=== PATIENT | male | born 1945 | race African-American/Black ===

== ENCOUNTER 2018-12-27 15:01 | Inpatient (IN) | payer OTHER ==
[~2018-12-27] VITALS: Ht 167.6 cm; Wt 79.4 kg
[2018-12-27 15:38] LABS: ABSOLUTE NEUTROPHILS 2.9 thou/uL (1.4-8.2); BASOPHILS 0.7 % (0.0-2.0); EOSINOPHILS 0.9 % (0.0-3.0); HEMATOCRIT 36.2 % (42.0-52.0); LYMPHOCYTES 31.2 % (24.0-44.0); MCH 31.2 pg (26.0-34.0); MCV 94.4 fL (80.0-100.0); PLATELET COUNT 261 thou/uL (150-400); POLYS 57.2 % (36.0-66.0); RBC 3.84 mil/uL (4.50-6.00); RDW 13.4 % (10.5-14.5); WBC 5.1 thou/uL (4.0-11.0)
[2018-12-27 15:52] LABS: ANION GAP 9 mmol/L (7-16); BUN 20 mg/dL (7-18); CALCIUM 8.8 mg/dL (8.5-10.1); CHLORIDE 101 mmol/L (98-107); CO2 25 mmol/L (21-32); CREATININE 1.6 mg/dL (0.7-1.3); DIRECT BILIRUBIN < 0.1 mg/dL (<0.1-0.3); SGOT 11 U/L (15-37); SGPT 20 U/L (30-65); SODIUM 135 mmol/L (136-145); TOTAL BILIRUBIN 0.2 mg/dL (<0.1-1.0); TOTAL PROTEIN 6.7 g/dL (6.4-8.2)
[2018-12-27 15:53] LABS: GLUCOSE 592 mg/dL (74-106)
[2018-12-27 20:36] LABS: URINE BILIRUBIN NEGATIVE (Negative); URINE BLOOD NEGATIVE (Negative); URINE CLARITY CLEAR; URINE COLOR YELLOW; URINE GLUCOSE-RANDOM* 3+ (Negative); URINE KETONES NEGATIVE (Negative); URINE LEUKOCYTES-REFLEX NEGATIVE (Negative); URINE NITRITE-REFLEX NEGATIVE (Negative); URINE PROTEIN (DIPSTICK) NEGATIVE (Negative); URINE UROBILINOGEN 0.2 E.U./dl (0.2-1.0)
[2018-12-27 23:55] VITALS: BP 145/99
[2018-12-28 00:25] VITALS: BP 125/63
[2018-12-28] MEDS ORDERED: AMLODIPINE BESY10 MG PO (00:49)
[2018-12-28] MEDS ORDERED: MIRALAX17 GM PO (00:49)
[2018-12-28] MEDS ORDERED: SINEMET 25-1001 EAC1 PO (00:49)
[2018-12-28] MEDS ORDERED: DEPAKOTE500 MG PO (00:50)
[2018-12-28] MEDS ORDERED: COLACE100 MG PO (00:50)
[2018-12-28] MEDS ORDERED: ELIQUIS5 MG PO (00:51)
[2018-12-28] MEDS ORDERED: PROSCAR 5MG TABL5 MG PO (00:51)
[2018-12-28] MEDS ORDERED: ESCITALOPRAM OX20 MG PO (00:51)
[2018-12-28] MEDS ORDERED: LEVEMIR SUBQ (00:52)
[2018-12-28] MEDS ORDERED: MELATONIN3 MG PO (00:53)
[2018-12-28] MEDS ORDERED: NOVOLIN N100 UNIT/3 SUBQ (00:54)
[2018-12-28] MEDS ORDERED: PRAVACHOL40 MG PO (00:54)
[2018-12-28] MEDS ORDERED: FLOMAX0.4 MG PO (00:54)
[2018-12-28] MEDS ORDERED: VITAMIN D1000 UNI1 PO (00:55)
[2018-12-28] MEDS ORDERED: TRAZODONE HCL50 MG PO (00:55)
[2018-12-28] MEDS ORDERED: REFRESH LIQUIGE15 ML (00:56)
[2018-12-28] MEDS ORDERED: DEPAKOTE ER250 MG PO (02:18)
[2018-12-28] MEDS ORDERED: TYLENOL325 MG PO (02:26)
[2018-12-28 03:58] VITALS: BP 97/46
[2018-12-28 06:03] LABS: CALCIUM 8.8 mg/dL (8.5-10.1); CREATININE 1.1 mg/dL (0.7-1.3)
[2018-12-28 06:11] LABS: POTASSIUM 3.6 mmol/L (3.5-5.1)
[2018-12-28 07:53] VITALS: BP 114/54
[2018-12-28] MEDS ORDERED: NOVOLOG100 UNIT/1 SUBQ (10:14)
[2018-12-28 11:16] VITALS: BP 139/72
[2018-12-28 12:18] VITALS: BP 139/72
--- NOTE | 2018-12-28 15:44 | NUR ---
PT was confused and refused to take medications at 08ooam, but pt's vs and bs are stable, pt is contniung IV D5 1/2 NS @ 100ML/HR, PT starts cooperative and follow all commands at 1100am , pt takes all medications and eats a good lunch,pt has met most of the care plan [facility] received order to d[facility] will d/c soon.
--- NOTE | 2018-12-28 16:31 | NUR ---
RN has giving report , [facility]'s transportation has potato picker pt by W/C now, pt is cooperative to go .
[2018-12-29 01:05] LABS: GLYCOHEMOGLOBIN (HGB A1C) 10.8 % (4.8-5.6)
== END 2018-12-28 16:29 | DRG 637 ==
LOC: ER 15:01 → EROBS 20:05 → 3W 12-28 00:22
PROVIDERS: Emergency Medicine; Nurse Practitioner Family; ADMIT Hospitalist
DX: E11.65 Type 2 diabetes mellitus with hyperglycemia (principal); G93.41 Metabolic encephalopathy; G30.9 Alzheimer's disease, unspecified; F02.80 Dementia in other diseases classified elsewhere, unspecified severity, without behavioral disturbance, psychotic disturbance, mood disturbance, and anxiety; E11.22 Type 2 diabetes mellitus with diabetic chronic kidney disease; G20 Parkinson's disease; N18.3 Chronic kidney disease, stage 3 (moderate); I48.2 Chronic atrial fibrillation; I12.9 Hypertensive chronic kidney disease with stage 1 through stage 4 chronic kidney disease, or unspecified chronic kidney disease; G47.00 Insomnia, unspecified; E78.5 Hyperlipidemia, unspecified; Z79.899 Other long term (current) drug therapy; Z88.0 Allergy status to penicillin

== ENCOUNTER 2018-12-31 15:43 | Inpatient (IN) | payer OTHER ==
[~2018-12-31] VITALS: Ht 172.7 cm; Wt 81.3 kg
--- NOTE | ~2018-12-31 | D ---
[facility] [place] [address] DISCHARGE SUMMARY Name: BONNY LOIVAREZ Room #: 519B-B DIS IN M.R.#: [id number] Admission: 12/31/18 Attend Phys: Horace Wise DO Discharge: 01/13/19 Date of : 45 Report #: [id number] THIS REPORT FOR: //name// CC: Horace Wise Lanny Chong PSYCHIATRIC DISCHARGE SUMMARY DATE OF DISCHARGE: 01/14/2019 ATTENDING PHYSICIAN: Horace Wise DO SOFTWARE EDUCATOR AT TIME OF DISCHARGE: Noe Stanley MD ADDITIONAL PRODUCTION TEAM MANAGER: Dr. Loretta Decker, leak hunter. The [facility]. Psychiatric and medical care will be per that staff. DIET: Diabetic diet. ACTIVITY LEVEL: As tolerated, will need 24/7 supervision. I believe we did DPOA at this admission. HOSPITAL COURSE: As stated, he had more periods of mood lability, ____ improved. This became less and less. I think the patient will have greater insight to the degree of ____ than he had previously. SIGNIFICANT LABORATORY DATA AT THIS ADMISSION: Most recent labs from 01/10/2019; H and H 15 and 31.4, white count 5.3, platelets 234. Toxicology: Depakote was titrated it was 1250 mg level was 39, increased to 1500 at discharge. DISCHARGE MEDICATIONS: Depakote ER 1500 mg p.o. at bedtime, blood level of this is normal. Seroquel 50 mg, ____ 2100. He did have conjunctivitis in his right eye, which resolved. Pantoprazole 20 mg p.o. daily for GERD. PHYSICAL EXAMINATION: VITAL SIGNS: On the day of discharge are as follows: Temperature 36.1, pulse 93, respirations 12, BP 148/82. MENTAL STATUS EXAMINATION: Initially, this is a well-developed, frail, disheveled black male who is nonambulatory, was in a wheelchair. Attention limited. Concentration limited. Speech is normal rate. Thought process is linear and goal directed relatively. Memory is variable. Insight limited. Judgment limited. Fund of knowledge ____. [facility] [address] [place] [address] DISCHARGE SUMMARY Name: BONNY OLIVAREZ Room #: 519B-B DIS IN M.R.#: [id number] Admission: 12/31/18 Attend Phys: Horace Wise DO Discharge: 01/13/19 Date of : 45 Report #: [id number] PROGNOSIS: For this patient is guarded given his dementia. Besides major neurocognitive disorder, other morbidities should be uncontrolled diabetes mellitus, CKD stage 3. By: 0018 0100 Horace Wise DO /nt
[2018-12-31 15:43] VITALS: BP 150/80
[~2018-12-31 15:43] MED LIST: AMLODIPINE BESY10 MG PO; COLACE100 MG PO; DEPAKOTE ER250 MG PO; DEPAKOTE500 MG PO; ELIQUIS5 MG PO; ESCITALOPRAM OX20 MG PO; FLOMAX0.4 MG PO; LEVEMIR SUBQ; MELATONIN3 MG PO; MIRALAX17 GM PO; NOVOLIN N100 UNIT/3 SUBQ; NOVOLOG100 UNIT/1 SUBQ; PRAVACHOL40 MG PO; PROSCAR 5MG TABL5 MG PO; REFRESH LIQUIGE15 ML; SINEMET 25-1001 EAC1 PO; TRAZODONE HCL50 MG PO; TYLENOL325 MG PO; VITAMIN D1000 UNI1 PO
[2018-12-31 15:46] VITALS: BP 150/80
[2018-12-31 16:05] LABS: ABSOLUTE NEUTROPHILS 2.4 thou/uL (1.4-8.2); BASOPHILS 0.6 % (0.0-2.0); EOSINOPHILS 1.2 % (0.0-3.0); HEMATOCRIT 37.9 % (42.0-52.0); HEMOGLOBIN 12.8 gm/dL (14.0-18.0); LYMPHOCYTES 34.3 % (24.0-44.0); MCH 31.4 pg (26.0-34.0); MCHC 33.7 g/dL (28.0-37.0); MCV 93.2 fL (80.0-100.0); PLATELET COUNT 275 thou/uL (150-400); POLYS 54.9 % (36.0-66.0); RBC 4.06 mil/uL (4.50-6.00); WBC 4.3 thou/uL (4.0-11.0)
[2018-12-31 16:06] LABS: URINE BILIRUBIN NEGATIVE (Negative); URINE BLOOD NEGATIVE (Negative); URINE CLARITY CLEAR; URINE COLOR YELLOW; URINE GLUCOSE-RANDOM* 3+ (Negative); URINE KETONES NEGATIVE (Negative); URINE LEUKOCYTES-REFLEX NEGATIVE (Negative); URINE NITRITE-REFLEX NEGATIVE (Negative); URINE PROTEIN (DIPSTICK) TRACE (Negative); URINE SPECIFIC GRAVITY 1.015 (1.005-1.035); URINE UROBILINOGEN 0.2 E.U./dl (0.2-1.0)
[2018-12-31 16:13] LABS: AMP/METHAMP Negative (Negative); BARBITURATES Negative (Negative); BENZODIAZEPINES Negative (Negative); COCAINE Negative (Negative); METHADONE Negative (Negative); OPIATES Negative (Negative); PCP Negative (Negative)
[2018-12-31 16:14] LABS: CALCIUM 9.2 mg/dL (8.5-10.1); CREATININE 1.6 mg/dL (0.7-1.3); POTASSIUM 4.7 mmol/L (3.5-5.1)
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
[2018-12-31 17:55] VITALS: BP 155/83
[2018-12-31 22:39] VITALS: BP 126/69
--- NOTE | 2019-01-01 00:05 | NUR ---
PATIENT IN BED WHEN I CAME ON TONIGHT. HE IS NEW HERE. HE IS BED BOUND. HE DID SCOOT HIMSELF TO THE FLOOR BECAUSE HE HAD THE WIRE FROM [employer] THAT WAS FROM THE TRANSPORTATION AMBULANCE FELL ONTO HIS BED AND HE THOUGHT THE WIRE WAS A BOMB. HE WAS TRYING TO GET AWAY FROM IT. PATIENT WAS UNABLE TO HOLD HIS WEIGHT ON HIS LEGS AND ME AND MALE LOCK AND DAM OPERATOR HAD TO LIFT HIM TO GET HIM BACK INTO THE BED. I TOOK THE WIRE AND LET THE PATIENT KNOW THERE WAS NO BOMB PRESENT NOW AND HE WAS SAFE. HE CALMED DOWN. HIS GLUCOSE AT HS WAS 320. GLARGINE 10U GIVEN AND LISPRO 9U GIVEN. PATIENT TOOK HIS HS MEDS WHOLE AND WITHOUT DIFFICULTY AND CURRENTLY IS SLEEPING SOUNDLY NOW.
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
[2019-01-01 17:00] LABS: ALBUMIN 3.2 g/dL (3.4-5.0); DIRECT BILIRUBIN < 0.1 mg/dL (<0.1-0.3); SGOT 18 U/L (15-37); SGPT 25 U/L (30-65); TOTAL BILIRUBIN 0.2 mg/dL (<0.1-1.0); TOTAL PROTEIN 7.3 g/dL (6.4-8.2)
--- NOTE | 2019-01-01 17:29 | NUR ---
COMBATIVE-STRIKING OUT AT AND SWEARING AT NURSING STAFF WITH ATTEMPTS TO DO AM VS OR BLOOD SUGARS-REFUSES BREAKFAST AND ALL PO MEDS-ATTEMPTING TO GET UP OUT OF BED AFTER LARGE EPISODES OF URINARY AND FECAL INCONTNENCE-REQUIRES SBA OF 2 STAFF FOR TRANSFERS AND 3 TO COMPLETE INCONTINENT CARE- DID EAT LARGE BREAKFAST LATE-ASSISTED BY MD IN ADMINISTERING INSULINS AT 1130 BS 444 AND PT CONTNUES TO REFUSE. INCONT OF URINE X3-DENIES CO PAIN/DICOMFORT. VS OBTAINED AT 1600 AND BP 140/83 P-77 [id number] TEMP BUT 02 SAT 98
[2019-01-01 19:48] VITALS: BP 128/75
--- NOTE | 2019-01-02 03:31 | NUR ---
NURSES NOTE - ASSUMED CAERE OF PATIENT AT 1915. PATIENT HAS BEEN IN BED MOST OF THE SHIFT WITH EYES OPEN. HE COMPLIED WITH THIS NURSES REQUESTS AND PROMPTS WITH NO ACTING OUT BX. HE TOOK MEDICATION ORDERED WITH NO ISSUES. HE CURRENTLY DENIED SI HI WELL ANY HALLUCINATIONS NOR WAS ANY INTERNAL STIMULI NOTED. HE DID NOT REPORT ANY MEDICAL CONCERNS NOR DOES HE APPEAR TO BE IN DISTRESS. NURSING WILL MAINTAIN ALL PRECAUTIONS TO ENSURE SAFETY AT ALL TIMES.
[2019-01-02 05:24] LABS: HEMATOCRIT 31.6 % (42.0-52.0); HEMOGLOBIN 10.9 gm/dL (14.0-18.0); MCHC 34.6 g/dL (28.0-37.0); MCV 92.4 fL (80.0-100.0); PLATELET COUNT 247 thou/uL (150-400); RBC 3.42 mil/uL (4.50-6.00); RDW 13.3 % (10.5-14.5); WBC 4.2 thou/uL (4.0-11.0)
[2019-01-02 05:34] LABS: CALCIUM 8.7 mg/dL (8.5-10.1); CREATININE 1.3 mg/dL (0.7-1.3); POTASSIUM 4.1 mmol/L (3.5-5.1)
--- NOTE | 2019-01-02 06:47 | NUR ---
PATIENT SLEPT 9.3 HOURS
[2019-01-02 06:54] LABS: PLATELET ESTIMATE NORMAL
[2019-01-02 06:56] LABS: ATYPICAL LYMPHS 5 %
[2019-01-02 08:00] VITALS: BP 118/58
[2019-01-02 08:46] VITALS: BP 118/58
--- NOTE | 2019-01-02 09:00 | NUR ---
PT ATE BREAKFAST, THEN FELL ASLEEP IN W/C. PT IN GROUP AND WAS SLEEPING AND DIDN'T WAKE UP FOR AM MEDS, ABLE TO GIVE LANTUS SHOT IN AM, PT DIDN'T AWAKE DURING SHOT. PT SITTING QUIETLY IN GROUP THIS AM.
--- NOTE | 2019-01-02 10:00 | NUR ---
PT AWAKE AT THIS TIME. PT ALLOWED NURSE TO PLACE EYE DROPS TO RT EYE. NO SIGNS OF REDDNESS AT THIS TIME TO EYES. PT THEN WANTED ASSISTED TO ROOM TO USE BATHROOM.
--- NOTE | 2019-01-02 16:05 | NUR ---
DARRIAN called in a left a voicemail for pt brother yoni concerning a FM, and to complete psych. assessment. DARRIAN provided contact information in requested a return call.
--- NOTE | 2019-01-02 17:46 | NUR ---
PT HAS BEEN TAKING MEDS WITHOUT ISSUES TODAY.
--- NOTE | 2019-01-02 18:16 | NUR ---
GOT NEW INSULIN BOTTLE FOR MODERATE SCALE LATER THAN DINNER TIME. PT DIDN'T WANT FULL 16 UNITS, HE JUST WANTED 12 UNITS. THEN HE WANTED 10 UNITS, THIS NURSE STATED THAT THERE IS A SCALE THAT THE RANGE OF SUGAR GOES BY.
--- NOTE | 2019-01-02 21:01 | NUR ---
PT REFUSED MEDICATIONS, FSBS, INSULIN AND HS SNACK. PT RESTING IN BED SINCE START OF SHIFT. PT PLEASANT AND CALM WITH VERBAL REFUSAL. ENCOURAGED PT COMPLIANCE TO ASSIST WITH DISCHARGE FROM FACILITY.
--- NOTE | 2019-01-03 06:21 | NUR ---
PT CONTINUES TO REUSE MEDICATIONS, EYE DROPS. PT GRITTED TEETH AND MADE FISTS WHEN ATTEMPTING TO COMPLETE AM ADL INCONTINENCE CARE. WILL REAPPROACH RE CARE.
[2019-01-03 08:00] VITALS: BP 148/74
--- NOTE | 2019-01-03 20:52 | NUR ---
PATIENT HAS BEEN OUT ON UNIT - PARTICIPATED RELUCTANTLY IN GROUPS. GOOD APPETITE - COMPLETION OF MEALS. MEDICATION COMPLIANCE - BLOOD SUGARS HAVE BEEN UNSTABLE BUT INSULIN GIVEN SCHEDULED. VERY LABILE - PLEASANT ONE MINUTE AND IRRITABLE NEXT. PATIENT RELUCTANT TO EXPRESS FEELINGS TO STAFF. NEEDS MONITORING - ATTEMPTS TO GET UP FROM WHEELCHAIR WITHOUT ASSISTANCE. VERY UNSTEADY ON FEET. UNABLE TO WEIGHT BEAR FOR TOO LONG.
--- NOTE | 2019-01-04 01:26 | NUR ---
PATIENT REFUSED HS ACCUCHECKS, LANTUS HELD.
--- NOTE | 2019-01-04 03:24 | NUR ---
NURSES NOTE - BONNY IS ALERT AND ORIENTED 1-2X. UPON GREETING PATIENT HE WAS AGITATED, IRRITABLE AND REFUSED THIS NURSES ASSESSMENT, ACCUCHECKS AND MEDICATIONS. HE ALSO DISPLAYED AGGRESSIVE POSTURE WHILE LAYING IN BED. THIS NURSE HELD LANTUS THIS NURSE WAS UNAWARE OF BLOOD SUGAR AND TO AVOID BOTTOMING PATIENT OUT. WILL CONTINUE TO ATTEMPT TO ASSESS AND OBTAIN BLOOD SUGAR. AT THIS TIME PATIENT WILL NOT LET THIS NURSE ASSESS PATIENT. HE DOES NOT APPEAR TO BE IN MEDICAL DISTRESS. WILL CONTINUE TO MONITOR.
--- NOTE | 2019-01-04 06:21 | NUR ---
PATIENT REFUSED ALL AM MEDICATIONS FOR NOC SHIFT.
--- NOTE | 2019-01-04 06:37 | NUR ---
PT SLEPT 11 HOURS
[2019-01-04 09:40] VITALS: BP 157/75
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
[2019-01-04 21:19] VITALS: BP 128/68
--- NOTE | 2019-01-05 01:54 | NUR ---
NURSES NOTE - THIS NURSE ASSUMED CARE AT 1915. THIS NURSE ENTERED INTO PATIENTS ROOM TO GREET PATIENT, PATIENT WAS ROLLING IN BED, COVERED IN A BLANKET. HE WOULD NOT SPEAK TO THIS NURSE NOR ACKNOWLEDGE THIS NURSE. HE REFUSED ALL HS MEDICATIONS AND HS BLOOD SUGAR. ASSESSMENT WAS UNABLE TO BE COMPLETED FULLY THIS NURSE COULD ONLY ASSESS VISUALLY. WILL CONTINUE TO MONITOR.
[2019-01-05 09:09] VITALS: BP 144/103
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
--- NOTE | 2019-01-05 10:32 | NUR ---
WILL INTERMITENTLY REFUSES MEDS,FINGERSTICKS,CARES,INSULIN ETC THIS [id number]-MINIMALLY VERBAL. RESTLESS/IMPULSIVE ATTEMPTING TO GET UP ON OWN DESPITE INABILITY TO AMBULATE-INCON OF URINE X 2
--- NOTE | 2019-01-05 11:25 | NUR ---
SW attempted to reach pt brother in was not successful. Pt brother voicemail was full, and unable to leave a voicemail.
[2019-01-05 13:00] VITALS: BP 130/88
--- NOTE | 2019-01-05 17:43 | NUR ---
BLOOD SUGAR AT 1130 446- ON UNIT NOTIFIED AND MAX DOSE 20 UNITS ADMISNSTERD VIA SS INSULIN-BLLOD SUGAR AT 1645 GREATER THAN 500-DR. SHETH PAGED X2 INFORMED BY NURSING FORENSIC PHOTOGRAPHER DR BERRY COVERING-DR BERRY CONTACTED AT 1730 AFTER 20 UNITS INSULIN GIVEN AWAITING RETURN CALL
[2019-01-05 21:10] VITALS: BP 106/62
--- NOTE | 2019-01-05 23:02 | NUR ---
PT LAYING IN BED UPON ARRIVAL TO SHIFT. PT COMBATIVE YELLING THREATENING TO HIS STAFF REFUSING HIS INSULIN. FSBS 654 STAT INSULIN GIVEN. PT DID CONTINUE WITH YELLING AND SWINGING AT STAFF, GRITTING TEETH, CALLING STAFF DEROGATORY NAMES, N WORD. PRN IM PROVIDED. PT CALLED NURSE IN APPROXIMATELY AN HOUR LATER AND APOLOGIZED FOR HIS BEHAVIOR. PT WAS COMPLIANT WITH MEDS AND INSULIN AT THAT POINT. FSBS DECREASED TO 270. PT HAD BLUNTED AFFECT ONCE CALM WITH [facility] CONTACT.
--- NOTE | 2019-01-06 07:15 | NUR ---
PT UP IN W/C THIS AM. PT NEEDS HELP WITH OPENING UP STYROPHOME TRAY. PT HAS SOME TREMORS TO HANDS. PT SMILING THIS AM WITH PEERS AND STAFF.
[2019-01-06 08:30] VITALS: BP 131/59
[2019-01-06 08:39] VITALS: BP 131/59
--- NOTE | 2019-01-06 08:56 | NUR ---
PT TOOK MEDS WITHOUT ANY ISSUES THIS AM. PT ACCEPTED INSULIN ADM.
--- NOTE | 2019-01-06 11:35 | NUR ---
WORKFORCE MANAGEMENT ANALYST was seated at table in day room with another patient completing admission assessment. This patient requested to sit at table. Patient began interrupting assessment, stating that WORKFORCE MANAGEMENT ANALYST and the other pt needed to move from table because it was his table and lunch would be arriving immediately. WORKFORCE MANAGEMENT ANALYST explained that tables are shared and lunch would not be arriving for another 30 minutes in which WORKFORCE MANAGEMENT ANALYST would be gone from table. Pt became irritated and began to pull table away from the other pt who was using it to support herself to stand. WORKFORCE MANAGEMENT ANALYST reached for table to stop it from moving/prevent pt from falling at which time Praful began to say, "fuck you man, get away from my table bitch" and tightly squeezed WORKFORCE MANAGEMENT ANALYST arm to prevent her from stopping table from moving. WORKFORCE MANAGEMENT ANALYST was able to safely relocate this pt who is now observed to be sitting back at this table.
--- NOTE | 2019-01-06 13:17 | NUR ---
WOUND CONSULT; ASSESSMENT TODAY WITH THE SHIPPING AND RECEIVING COORDINATOR. NO WOUNDS WERE IDENTIFIED AT THIS TIME. RECOMMENDATIONS; RECONSULT IF NEEDED. RN PRESENT
--- NOTE | 2019-01-06 13:44 | NUR ---
Date of Admission: 12/31/18 Date of Activity Therapy Assessment: 01/03/19 Activity Goal: Develop coping skills to aid in frustration tolerance and impulse control Initial Goal: 1 Group activity/day Weekly progress towards goal: Did not achieve goals Group participation level: Minimal Behaviors observed: Patient has not met goal or consistently participated in groups since admission. When present, participation is minimal to passive. No aggression has been demonstrated in groups though interaction with peers is minimal. Plan: No change towards goal
--- NOTE | 2019-01-06 16:38 | NUR ---
PT SITTING ON REG. CHAIR. PT STATED HE WANTED TO GO BACK TO STATION 4.
--- NOTE | 2019-01-06 19:56 | NUR ---
assumed care of the pt at 191 pm. alert et oriented x 2. makes needs known. heart rate regular. lungs clear bilaterally, resp., even, and unlabored. +bs heard in all 4 quadrants. denies pain at this time. remains on 12 minute checks for his safety.
[2019-01-07 00:07] LABS: GLYCOHEMOGLOBIN (HGB A1C) 10.7 % (4.8-5.6)
[2019-01-07 00:14] VITALS: BP 162/92
--- NOTE | 2019-01-07 06:45 | NUR ---
the pt slept 8 hours last night.
[2019-01-07 07:18] VITALS: BP 193/173
--- NOTE | 2019-01-07 11:11 | NUR ---
0715: Report rec from pop juarez, care assumed. [id number]: Transferred to w/c from bed with 1 assist of staff, cooperative with staff, to DR via w/c, feeds self with set-up assistance, appetite good, takes meds whole w/o difficulty. ttended 0900 therapy group, 100% participation, mood is pleasant, interacts well with other pts. 1045: Family here to visit, pt alert, oriented to name, and occasionally to place.
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
--- NOTE | 2019-01-07 12:25 | NUR ---
Followup: Eating 75-100% of carb controlled diet. No new wt since 12/31. BG increased as high as >600 and pt was refusing insulin but appears to be more compliant to receiving now. BG covered with glargine and ss insulin. No new nutrition interventions. Low nutrition risk
[2019-01-07 19:46] VITALS: BP 129/73
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
--- NOTE | 2019-01-08 05:30 | NUR ---
PT SLEPT 8.2 HOURS
[2019-01-08 09:11] VITALS: BP 136/68
[2019-01-08 12:26] VITALS: BP 136/68
--- NOTE | 2019-01-08 12:37 | NUR ---
ASSUMED CARE AT 0700 THIS MORNING. PT. AWAKE, ALERT X 1 TO 2. HE TALKED BRIEFLY THIS MORNING ABOUT HOW NERVOUS HE WAS LAST NIGHT, THINKING SOMEONE WOULD COME INTO HIS ROOM. HE WAS ASSURED BY THIS RN THAT WE ARE HERE TO DO ROUNDS ON HIM OFTEN (APPROXIMATELY EVERY 12 MINUTES) TO MAKE SURE EVERYONE IS ALRIGHT. HE DID NOT REPLY TO THIS. HE HAS BEEN COOPERATIVE WITH STAFF, TAKING HIS MEDS AND ATTENDING GROUPS. EATING WELL. DENIES SI/HI. BUT DOES HAVE SOME NOTABLE AVH, THINKING SOMEONE IS GOING TO HARM HIM. SITS IN W/C. STAFF TOOK HIM TO THE BATHROOM BUT HE WAS UNABLE TO GO X 2. LATER HE DID GO TO URINATE.
[2019-01-08 20:47] VITALS: BP 119/64
--- NOTE | 2019-01-09 04:24 | NUR ---
PT IN ROOM AT START OF THE EVENING. ISOLATIVE, AND SUSPICIOUS OF THIS STAFF, THINKING I WILL DO HIM HARM. WARMED A LITTLE AFTER A SHORT TALK AND ASSESSMENT. REFUSED HS MEDS, BUT WAS NOT LOUD OR ARGUMENTATIVE, JUST DID NOT WANT TO TAKE THEM. SLEPT WELL THROUGH THE NIGHT.
--- NOTE | 2019-01-09 15:35 | NUR ---
HAS BEEN COMPLIENT WITH TAKING ALL MEDS SO FAR THIS SHIFT. VISIBLE IN DAYROOM-ATTENDING GROUPS AND STRUCTURES FREE TIME VISITING WITH FEMALE PEER IN DAYROOM. DENIES COMPLAINTS OF PAIN/DISCOMFORT. DYSPHORIC MOOD-SOME MILD PARANOIA-ASKING THIS NURSE WHY THE "CHIEF" WAITED TO GET HIM UP FOR BREAKFAST-ANGRY FACIAL EXPRESSION WHEN SPEAKING ABOUT THIS-"THEY MADE ME WAIT UNTIL LAST BECAUSE HE DOESN'T LIKE ME" BLOOD SUGAR AT 0700-90 AT 1200 IS 365. ASKS FREQUENTLY FOR EXTRA SNACKS AND FOOD
--- NOTE | 2019-01-09 15:58 | NUR ---
DARRIAN called [facility] and confirmed his D/C for tomorrow. They will offer a continuous pickling line pickler helper time when there are Dr orders tomorrow. REported this to Dr Holm and nursing. DARRIAN sent updates
[2019-01-09 18:08] VITALS: BP 123/63
[2019-01-09 21:32] VITALS: BP 109/66
[2019-01-10 01:03] VITALS: BP 109/66
--- NOTE | 2019-01-10 03:27 | NUR ---
PT COOPERATIVE EARLY IN SHIFT. BECAME SURLY AND A LITTLE THREATENING TOWARD STAFF AT BEDTIME. WANTED TO GET INTO BED BY HIMSELF AND WAS REFUSING ASSISTANCE. AFTER SOME GENTLE ENCOURAGEMENT ALLOWED STAFF TO ASSIST HI TO BED. TOOK HS MEDS PRESCRIBED INCLUDING 6units INSULIN FOR BS OF 125. SLEPT WELL THROUGH THE NIGHT.
[2019-01-10 09:03] VITALS: BP 129/79
--- NOTE | 2019-01-10 16:18 | NUR ---
Santana sent updates to [facility] of (f) [phone]
[2019-01-10 19:35] VITALS: BP 138/73
--- NOTE | 2019-01-10 21:19 | NUR ---
ASSUMED CARE OF THE PT AT 191 PM. THE PT WAS LYING ON HIS RIGHT SIDE, APPEARS SEDATED AT THIS TIME. VITAL SIGNS WERE TAKEN, EARLIER IN THE SHIFT. VITAL SIGNS WERE STABLE. HEART RATE REGULAR. LUNGS CLEAR BILATERALLY, RESP., EVEN, AND UNLABORED. +BS HEARD IN ALL 4 QUADRANTS. THE PT IS INCONTINENT AT TIMES. CALLED THE PHYSICIAN FISH DRIER, WHO ORDERED CBC, CMP AND AMNONIA LEVEL STAT. REMAINS ON 12 MINUTE CHECKS FOR HIS SAFETY.
[2019-01-10 21:39] LABS: WBC 5.3 thou/uL (4.0-11.0)
[2019-01-10 21:41] LABS: ABSOLUTE NEUTROPHILS 2.1 thou/uL (1.4-8.2); BASOPHILS 0.7 % (0.0-2.0); CALCIUM 8.8 mg/dL (8.5-10.1); CREATININE 1.7 mg/dL (0.7-1.3); HEMATOCRIT 31.4 % (42.0-52.0); HEMOGLOBIN 10.5 gm/dL (14.0-18.0); LYMPHOCYTES 45.4 % (24.0-44.0); MCH 31.3 pg (26.0-34.0); MCHC 33.4 g/dL (28.0-37.0); MCV 93.9 fL (80.0-100.0); MONOCYTES 11.7 % (1.0-8.0); PLATELET COUNT 234 thou/uL (150-400); POLYS 40.2 % (36.0-66.0); POTASSIUM 5.5 mmol/L (3.5-5.1); RBC 3.34 mil/uL (4.50-6.00)
[2019-01-10 21:47] LABS: ALBUMIN 2.7 g/dL (3.4-5.0); TOTAL BILIRUBIN 0.3 mg/dL (<0.1-1.0); TOTAL PROTEIN 6.2 g/dL (6.4-8.2)
--- NOTE | 2019-01-11 00:41 | NUR ---
the pt continued to appear to be sedated. called the physician complex commercial litigation paralegal and he ordered labs, which were drawn, lab results were discussed with the physician complex commercial litigation paralegal. he ordered for the hospitalist to see him this evening. a ua was gotten, by straight cath as ordered by the N.P., this program writer encouraged fluids as ordered by the N.P. Fluids encouraged as ordered.
--- NOTE | 2019-01-11 04:04 | NUR ---
ASSISTED THE PT TO THE BSC AND BACK TO BED WITH THE ASSISTANCE OF TWO PEOPLE. THE PT HAD A VERY LARGE BM THIS MORNING. REMAINS ON 12 MINUTE CHECKS FOR HIS SAFETY.
--- NOTE | 2019-01-11 05:59 | NUR ---
the pt slept 11 hours last night.
[2019-01-11 08:22] VITALS: BP 123/51
--- NOTE | 2019-01-11 10:08 | NUR ---
ASSUMED CARE AT 0700 THIS MORNING. HE WAS A BIT SURLY WHEN THIS RN TRIED TO TALK TO HIM THIS MORNING. HE DID TAKE HIS MEDICATIONS WITHOUT PROBLEMS, HOWEVER. HE ATE WELL AND SAT ON THE UNIT DURING MORNING MEETING, WITHOUT PARTICIPATING MUCH. NO S/S SI/HI OR AVH NOTED THIS MORNING.
[2019-01-11 10:16] VITALS: BP 123/51
--- NOTE | 2019-01-11 11:58 | HC ---
[facility] [place] [address] CONSULTATION Name: BONNY OLIVAREZ Room #: 519B-B ADM IN M.R.#: [id number] Admission: 12/31/18 Attend Phys: Horace Wise DO Discharge: Date of : 45 Report #: [id number] THIS REPORT FOR: //name// CC: Horace Wise Lanny Chong DATE OF SERVICE: 01/10/2019 ENDOCRINOLOGY CONSULTATION NOTE CONSULTING PHYSICIAN: Dr. Noe Stanley. REASON FOR CONSULTATION: Uncontrolled type 2 diabetes mellitus. HISTORY OF PRESENT ILLNESS: This is a 73-year-old male patient who has medical background as noted for multiple medical issues including type 2 diabetes mellitus, chronic kidney disease, hypertension, atrial fibrillation, and Parkinson's disease. The patient was admitted initially due to agitation and confusion. Again, the patient has had type 2 diabetes mellitus for several years and on arrival had blood glucose values over 500 mg/dL. The patient was not able to give great details about the therapeutic history of diabetes mellitus, but it seems that he was treated with insulin at least for a portion of time in the past. Here in the hospital, the patient was placed on a combination of Lantus insulin 20 units q.p.m. in addition to a Humalog insulin sliding scale with which he has done better and maintained blood glucose values in the mid 100s to mid 200s, but then was documented as having one episode of blood glucose in the 90s. The patient believes he has had issues with diabetic retinopathy, neuropathy, but not nephropathy. He denies any issues with coronary artery disease or strokes in the past. REVIEW OF SYSTEMS: CONSTITUTIONAL: No fatigue, tiredness, but not body weight changes. PULMONARY: Negative for shortness of breath, but is noted for intermittent cough. CARDIAC: Negative for chest pain, lower extremity edema or syncope. GASTROINTESTINAL: Negative for abdominal discomfort, nausea or vomiting. GENITOURINARY: Negative for polyuria, dysuria or hematuria. MUSCULOSKELETAL: Noted for muscle aches, myalgia, occasional joint aches. SKIN: Negative for rash, bruising or itching. NEUROLOGIC: Negative for loss of consciousness or seizure activity. HEMATOLOGY: Negative for bruising or bleeding. [facility] [address] [place] [address] CONSULTATION Name: BONNY OLIVAREZ Room #: 519B-B ADM IN M.R.#: [id number] Admission: 12/31/18 Attend Phys: Horace Wise DO Discharge: Date of : 45 Report #: [id number] Otherwise, review of systems noncontributory other than those mentioned in HPI. PAST MEDICAL HISTORY: 1. Type 2 diabetes mellitus. 2. Hypertension. 3. Atrial fibrillation. 4. Chronic kidney disease. 5. Parkinson's disease. 6. Dementia. MEDICATIONS: The patient's reported medications included: 1. Amlodipine 10 mg daily. 2. Finasteride 5 mg daily. 3. Carbidopa/levodopa 1 tab 3 times a day. 4. Pantoprazole 20 mg daily. 5. Apixaban 5 mg twice daily. 6. Glargine 10 units b.i.d. 7. Humalog insulin sliding scale. 8. Melatonin as needed. 9. Tamsulosin 0.4 mg at bedtime. ALLERGIES: No known drug allergies. PAST SURGICAL HISTORY: Unremarkable. FAMILY HISTORY: Unremarkable. SOCIAL HISTORY: The patient denies use of tobacco, alcohol or illicit drugs. He lives at [facility]. PHYSICAL EXAMINATION: GENERAL: Elissa elderly -[place] male patient who is not in apparent distress. VITAL SIGNS: Blood pressure is 109/66 mmHg, heart rate is 54 beats per minute, respirations 13 per minute, temperature 36.3 degrees. HEENT: Intact extraocular motions. Anicteric sclerae. No apparent ophthalmologic issues. NECK: Supple with full range of motion. No thyromegaly. CHEST: Clear to auscultation with good air entry bilaterally. No wheezes or crackles. HEART: Regular rate and rhythm without murmurs. ABDOMEN: Soft and lax without tenderness or organomegaly. Active bowel sounds. EXTREMITIES: Noted for trace ankle edema bilaterally with no active ulcerations. NEUROLOGIC: Awake and alert without focal motor weaknesses. PSYCHIATRIC: Answer my questions, pleasant, alert, cheerful affect, but unable [facility] [address] [place] [address] CONSULTATION Name: BONNY OLIVAREZ Room #: 519B-B ADM IN M.R.#: [id number] Admission: 12/31/18 Attend Phys: Horace Wise DO Discharge: Date of : 45 Report #: [id number] to focus on questions at occasion. SKIN: No rash or ulceration noted. LABORATORY RESULTS: Sodium 140, potassium 4.1, chloride 104, CO2 of 28, anion gap of 8, BUN 19, creatinine 1.3, glucose on admission 654, again managed to kind of stay between 90 and 168, calcium 8.7, magnesium 2.0, ALT 25, albumin 3.2, GFR 66. Hemoglobin 10.9, vitamin B12 774, hemoglobin A1c 10.7. ASSESSMENT AND PLAN: 1. Type 2 diabetes mellitus. The patient has an uncontrolled baseline. Interestingly, he responded rather well to a relatively low dose of insulin during his hospital stay, which gives me the impression that his medicinal intake has probably been inconsistent at home. Due to the wide fluctuation of the recorded blood glucose values during his hospital stay, my immediate goal would be to eliminate hypoglycemia. That said, I will drop his Lantus insulin dose to 14 units at night, maintain coverage with Humalog supplemental scale, but also introduce a therapeutic dose of metformin as Glucophage-XR 750 mg twice a day. Blood glucose monitoring will ensue every 6 hours and further therapeutic adjustments will be made accordingly. 2. Hypertension. The patient's level of blood pressure control is adequate. He is to continue with the current regimen. I certainly appreciate this consultation by Dr. Stanley. It is a pleasure to participate in the care of this pleasant gentleman. <ELECTRONICALLY SIGNED> By: Loretta Decker MD 01/11/19 1158 [id number] Loretta Decker MD /nt
[2019-01-11 19:10] VITALS: BP 134/84
--- NOTE | 2019-01-12 01:31 | NUR ---
ASSUMED CARE FROM DAY SHIFT PT SITTING IN WHEELCHAIR CALM AT PRESENT TIME , COOPERTIVE AND ANSWER QUESTION APPROPIATELY, PO MEDICATION TAKEN , NO CONCERNS VOICED , WATCHING TV IN DAY ROOM. PT INCONTINENT AND CHANGED FREQ THROUGHOUT HOURLY ROUNDING. PT BEGAN TO BECOME VERBALLY AGGRESSIVE WHEN CHANGING PADS AND PROVIDING BARBARA CARE. WILL CONTINUE WITH CURRENT PLAN OF CARE AND WILL REPOR CHANGES OR ABNORMAL FINDINGS.
--- NOTE | 2019-01-12 01:39 | NUR ---
AFTER REVIEWING PATIENT RECORD ET LAB VALUES THE BLOOD SUGAR TAKEN AT 1951 WITH A READING OF 74 ON 01/11/19. IS AN ERROR PER GLUCOMETER SCANNING. AT 1955 ALL RIGHTS WERE FOLLOWED AND NEW EQUIPMENT USED THAT PROVIDED THE CORRECT BLOOD SUGAR READING OF 172. DISREGARD THE VALUE OF 74 IT IS INCORRECT.
[2019-01-12 09:08] VITALS: BP 116/68
[2019-01-12 11:32] VITALS: BP 116/68
--- NOTE | 2019-01-12 11:37 | NUR ---
ASSUMED CARE AT 0700 THIS MORNING. HE IS UP ON THE UNIT, INTERACTING WITH PEERS. TOOK MEDS WITHOUT DIFFIUCLTY, ATTENDED GROUPS. PLAYED CARDS WITH PEERS. DENIES SI/HI, AND NO S/S AVH NOTED. HAS BEEN PLEASANT AND COOPERATIVE. SO S/S AGGRESSION NOTED.
[2019-01-12 20:39] VITALS: BP 143/62
[2019-01-13] VITALS: BP 143/62
--- NOTE | 2019-01-13 03:48 | NUR ---
PT IN ROOM IN BED AT [facility] OF SHIFT. QUIET, BUT COOPERATIVE WITH ASSESSMENT. REFUSED HS MEDS, AND INSULIN. BS 165. SULLEN AND REFUSING TO INTERACT WITH STAFF. AFFECT FLAT.
--- NOTE | 2019-01-13 07:30 | NUR ---
PT ALERT THIS AM AND NEEDING HELP WITH URINAL. PT CAN USE URINAL AT TIMES AND OTHER TIMES INCON. PT IN W/C. PT ORIENTED TO SELF. PT DIDN'T KNOW MONTH OR PLACE WITHOUT PROMPTING. PT CONVERSING WITH NURSE AND OTHER CLIENTS. PT SMILES AT TIMES.
[2019-01-13 08:00] VITALS: BP 148/82
[2019-01-13 09:36] VITALS: BP 148/82
[2019-01-13 09:38] VITALS: BP 148/82
[2019-01-13] MEDS ORDERED: DIVALPROEX SOD500 M1 PO (12:25)
[2019-01-13] MEDS ORDERED: SEROQUEL 50 MG50 MG PO (12:27)
[2019-01-13] MEDS ORDERED: TRIMETHOPRIM /P10 M1 OPHTHALMIC (12:28)
[2019-01-13] MEDS ORDERED: GLUCOPHAGE XR750 MG PO (12:29)
[2019-01-13] MEDS ORDERED: PROTONIX 20 MG20 M1 PO (12:29)
[2019-01-13] MEDS ORDERED: TRADJENTA5 MG PO (12:29)
[2019-01-13] MEDS ORDERED: LANTUS100 UNIT/M SUBQ (12:30)
--- NOTE | 2019-01-13 13:43 | NUR ---
PT LEFT VIA W/C VAN TO GA. PT STATED THAT THE W/C HE WAS IN WAS HIS.
--- NOTE | 2019-01-13 13:52 | NUR ---
GAVE REPORT TO AVINASH FROM [facility].
== END 2019-01-13 13:45 | DRG 57 ==
LOC: ER 15:43 → SBH 16:58 → EROBS 16:58 → SBH 17:25
PROVIDERS: Emergency Medicine; Hospitalist; Nurse Practitioner; Psychiatry & Neurology Psychiatry; ADMIT Psychiatry & Neurology Psychiatry
DX: G30.9 Alzheimer's disease, unspecified (principal); F32.9 Major depressive disorder, single episode, unspecified; F02.80 Dementia in other diseases classified elsewhere, unspecified severity, without behavioral disturbance, psychotic disturbance, mood disturbance, and anxiety; I12.9 Hypertensive chronic kidney disease with stage 1 through stage 4 chronic kidney disease, or unspecified chronic kidney disease; E11.22 Type 2 diabetes mellitus with diabetic chronic kidney disease; I48.2 Chronic atrial fibrillation; N18.3 Chronic kidney disease, stage 3 (moderate); H10.9 Unspecified conjunctivitis; N40.0 Benign prostatic hyperplasia without lower urinary tract symptoms; G20 Parkinson's disease; E78.5 Hyperlipidemia, unspecified; E11.649 Type 2 diabetes mellitus with hypoglycemia without coma; Z79.01 Long term (current) use of anticoagulants; Z79.82 Long term (current) use of aspirin; Z79.4 Long term (current) use of insulin; Z79.899 Other long term (current) drug therapy; Z88.0 Allergy status to penicillin
CPT/HCPCS: 10880

== ENCOUNTER 2020-09-25 10:56 | Inpatient (IN) | payer OTHER ==
[~2020-09-25] VITALS: Ht 182.9 cm; Wt 88.5 kg
[2020-09-25 10:56] VITALS: BP 146/81
[~2020-09-25 10:56] MED LIST changes: +DIVALPROEX SOD500 M1 PO; +GLUCOPHAGE XR750 MG PO; +LANTUS100 UNIT/M SUBQ; +PROTONIX 20 MG20 M1 PO; +SEROQUEL 50 MG50 MG PO; +TRADJENTA5 MG PO; +TRIMETHOPRIM /P10 M1 OPHTHALMIC
[2020-09-25 11:35] LABS: ABSOLUTE NEUTROPHILS 3.5 thou/uL (1.4-8.2); BASOPHILS 0.8 % (0.0-2.0); EOSINOPHILS 0.7 % (0.0-3.0); HEMATOCRIT 33.8 % (42.0-52.0); HEMOGLOBIN 12.2 gm/dL (14.0-18.0); LYMPHOCYTES 23.5 % (24.0-44.0); MCH 33.7 pg (26.0-34.0); MCHC 36.1 g/dL (28.0-37.0); MCV 93.4 fL (80.0-100.0); MONOCYTES 10.9 % (1.0-8.0); PLATELET COUNT 255 thou/uL (150-400); POLYS 64.1 % (36.0-66.0); RBC 3.62 mil/uL (4.50-6.00); RDW 14.3 % (10.5-14.5); WBC 5.5 thou/uL (4.0-11.0)
[2020-09-25 11:54] LABS: ANION GAP 6 mmol/L (7-16); BUN 46 mg/dL (7-18); CALCIUM 8.8 mg/dL (8.5-10.1); CHLORIDE 105 mmol/L (98-107); CO2 31 mmol/L (21-32); CREATININE 2.3 mg/dL (0.7-1.3); GLUCOSE 64 mg/dL (74-106); POTASSIUM 5.1 mmol/L (3.5-5.1); SODIUM 142 mmol/L (136-145)
[2020-09-25 12:02] LABS: LIPASE 115 U/L (73-393); SGOT 25 U/L (15-37); SGPT 12 U/L (16-63); TOTAL BILIRUBIN 0.4 mg/dL (0.2-1.0); TOTAL PROTEIN 7.2 g/dL (6.4-8.2); TROPONIN-I <0.06 ng/mL (<0.06)
[2020-09-25] MEDS ORDERED: FUROSEMIDE 40 M40 MG PO (12:25)
[2020-09-25] MEDS ORDERED: LEVEMIR100 UNIT/1 SUBQ (12:26)
[2020-09-25] MEDS ORDERED: SUPER THERAVIT1 EACH PO (12:26)
[2020-09-25] MEDS ORDERED: PROTONIX 20 MG20 MG PO (12:27)
[2020-09-25] MEDS ORDERED: ZINC50 M1 PO (12:28)
[2020-09-25] MEDS ORDERED: VITAMIN C500 M1 PO (12:28)
[2020-09-25 12:56] LABS: URINE BILIRUBIN NEGATIVE (Negative); URINE BLOOD NEGATIVE (Negative); URINE CLARITY SL CLOUDY; URINE COLOR YELLOW; URINE GLUCOSE-RANDOM* NEGATIVE (Negative); URINE KETONES NEGATIVE (Negative); URINE PROTEIN (DIPSTICK) NEGATIVE (Negative); URINE UROBILINOGEN 0.2 E.U./dl (0.2-1.0)
[2020-09-25 13:04] LABS: URINE LEUKOCYTES-REFLEX 3+ (Negative); URINE NITRITE-REFLEX POSITIVE (Negative)
[2020-09-25 13:17] LABS: SQUAMOUS None Seen /LPF (0-3)
[2020-09-25 13:18] LABS: BACTERIA-REFLEX >30 Many /HPF (None Seen); CASTS None Seen /LPF (None Seen); CRYSTALS None Seen /LPF (None Seen); URINE RBC None Seen /HPF (NONE SEEN); URINE WBC-REFLEX >25 Many /HPF (0-5)
[2020-09-25 15:05] VITALS: BP 146/81
[2020-09-25 18:00] VITALS: BP 146/105
[2020-09-25 18:00] LABS: CALCIUM 8.5 mg/dL (8.5-10.1); CREATININE 2.2 mg/dL (0.7-1.3); POTASSIUM 4.5 mmol/L (3.5-5.1)
[2020-09-25 18:34] VITALS: BP 149/79
[2020-09-25 19:29] VITALS: BP 147/89
--- NOTE | 2020-09-25 19:44 | NUR ---
Received pt fron the ED at 6:30 pm, complete bed bath given. Report given to night nurse. Pt is alert to self only.
--- NOTE | 2020-09-26 05:27 | NUR ---
PT LYING IN BED. INCONTINENT. NO SIGNS OR SYMPTOMS OF PAIN. RESTING COMFORTABLY. FREQUENT OBSERVATION.
[2020-09-26 07:20] VITALS: BP 145/93
[2020-09-26 13:21] LABS: CALCIUM 8.8 mg/dL (8.5-10.1); CREATININE 1.9 mg/dL (0.7-1.3); POTASSIUM 4.5 mmol/L (3.5-5.1)
[2020-09-26 16:05] VITALS: BP 144/77
--- NOTE | 2020-09-26 17:49 | NUR ---
Assumed pt care this am, pt was combative and aggressive. Medications givenas per emar. Diet and medications are tolerated well, oral meds needs to be crushed and given with pudding. Incontinent of both bowel and bladder. POC followed with no signs or verbalizations of distress noted. Endorsed to the night nurse.
[2020-09-26 19:13] VITALS: BP 143/95
--- NOTE | 2020-09-27 07:04 | EKG ---
[address] [place] [address] ELECTROCARDIOGRAM REPORT Name: BONNY OLIVAREZ Room #: 451-P ADM IN M.R.#: [id number] Admission: 09/25/20 Attend Phys: Deny Arciniega MD Discharge: Date of : 45 Report #: [id number] [facility] ED Test Date: 2020-09-25 Test Time: 11:23:59 Pat Name: BONNY OLIVAREZ Department: Room: [facility] Gender: M Supplier Quality Manager: jean-claude : 1945 Requested By: Dipak Werner Order Number: [id number] : Francisco Chand Measurements Intervals [place] Rate: 78 P: 42 IA: 187 QRS: 20 QRSD: 95 T: 84 QT: 378 QTc: 431 Interpretive Statements Sinus rhythm Atrial premature complex Nonspecific T abnormalities, lateral leads No previous ECG available for comparison Electronically Signed On 09-27-2020 7:04:34 CDT by Francisco Chand [email or web address] <ELECTRONICALLY SIGNED> By: Francisco Chand MD, [facility] 09/27/20 0704 [id number] Francisco Chand MD, FACC /EPI
[2020-09-27 07:40] VITALS: BP 137/90
--- NOTE | 2020-09-27 08:07 | NUR ---
PT LYING IN BED. INCONTINENT. COMBATIVE AT TIMES. PULLED IV OUT--REFUSED RESTART. FREQUENT OBSERVATION.
--- NOTE | 2020-09-27 10:54 | NUR ---
ASSUMED PT CARE THIS AM. TOOK AM MEDS WELL, BP MED WITHHELD DUE TO PULSE RATE. ON ROOM AIR. PATIENT HAS NO COMPLAINTS OF PAIN. IV STARTED TO RIGHT FOREARM, FLUIDS INFUSING. PATIENT IS A&OX1 AND HAS BEEN COOPERATIVE WITH CARES. PATIENT REMAINS INCONTINENT. CALL LIGHT WITHIN REACH, FALL PRECAUTIONS ARE IN PLACE.
[2020-09-27 11:10] LABS: CALCIUM 8.5 mg/dL (8.5-10.1); CREATININE 1.8 mg/dL (0.7-1.3); POTASSIUM 4.6 mmol/L (3.5-5.1)
[2020-09-27] MEDS ORDERED: CEFUROXIME500 MG PO (11:18)
--- NOTE | 2020-09-27 12:55 | NUR ---
PT ADMITTED RELATED TO ACUTE METABOLIC ENCEPHALOPATHY. CM REVIEWED CHART AND SPOKE WITH CARE TEAM. CM CALLED PT'S BROTHRER TRISTIAN AND HE INDICATED THAT HE HADN'T BEEN NOTIFIED OF PT'S ADMISSION TO HOSPITAL BY [facility] OR HOSPITAL. PT IS LTC PT AT [facility]. THEY USE A SIT TO STAND DEVICE AND A WC AT THE [facility]. PT IS DEPEDNENT FOR CARES AT THE [facility]. TRISTIAN INDICATED THAT SON MARIAN IS PT'S GUARDIAN AND THAT HE LIKELY HADN'T BEEN NOTIFIED EITHER. CM CALLED HIM HE WASN'T AWARE EITHER. CM INIDICATED THAT CARE TEAM INDICATED THAT PT IS MEDICALLY STABLE TO DC BACK TO [facility] THIS DAY ON ORAL ABX. THEY ARE AWARE AND AGREEABLE. CM TO ARRANGE [facility] TRANSPORT. AWAITING COVID TEST. CHART COPY ORDERED. ORDERS TO BE FAXED.
[2020-09-27 15:30] VITALS: BP 151/72
--- NOTE | 2020-09-27 16:37 | NUR ---
BPCI letter provided to patient, lives in LTC at [facility]
== END 2020-09-27 17:12 | DRG 682 ==
LOC: ER 10:56 → 4W 14:00 → EROBS 14:00 → 4W 17:48
PROVIDERS: Emergency Medicine; ADMIT Hospitalist; ATTEND Hospitalist
DX: N17.9 Acute kidney failure, unspecified (principal); G93.41 Metabolic encephalopathy; N39.0 Urinary tract infection, site not specified; I48.20 Chronic atrial fibrillation, unspecified; E11.22 Type 2 diabetes mellitus with diabetic chronic kidney disease; I12.9 Hypertensive chronic kidney disease with stage 1 through stage 4 chronic kidney disease, or unspecified chronic kidney disease; E11.649 Type 2 diabetes mellitus with hypoglycemia without coma; G30.9 Alzheimer's disease, unspecified; F02.80 Dementia in other diseases classified elsewhere, unspecified severity, without behavioral disturbance, psychotic disturbance, mood disturbance, and anxiety; G20 Parkinson's disease; E78.5 Hyperlipidemia, unspecified; G47.00 Insomnia, unspecified; N18.30 Chronic kidney disease, stage 3 unspecified; Z20.822 Contact with and (suspected) exposure to COVID-19; Z79.4 Long term (current) use of insulin; Z79.899 Other long term (current) drug therapy; Z88.0 Allergy status to penicillin
CPT/HCPCS: 10040